=== PATIENT | male | born 1990 | race Caucasian/White ===

== ENCOUNTER 2017-12-21 00:47 | Emergency (ER) | payer OTHER ==
[2017-12-21] MEDS ORDERED: HYDROmorphone 0.5 MG/0.5 ML SYRINGE IVPUSH ONE ×2 (01:49→02:59)
[2017-12-21] MEDS ORDERED: Metoclopramide 10 MG/2 ML SDV IVPUSH ONE (01:50)
--- NOTE | 2017-12-21 01:51 | EDM.PDOC ---
ED HPI GENERAL MEDICAL PROBLEM - General Chief Complaint: General Stated Complaint: PRESSURE BEHIND LEFT EYE AND TOOTH PAIN Time Seen by Provider: 12/21/17 01:48 Source of Information: Reports: Patient History Limitations: Reports: No Limitations - History of Present Illness INITIAL COMMENTS - FREE TEXT/NARRATIVE: 27-year-old male attends the ED with severe left hemifacial pain. States is constant throbbing pain for the last 3 days that will not allow him to sleep. Is for sinusitis in the clinic and started on Augmentin 875/125 mg tablets twice daily 2 days ago. Therefore they have had no time to work. States the pain is severe up underneath his left eye all of his teeth hurt degree the left uppers pain radiates through to his nose as well. He has never had similar type problems. States it all started after he had a nasal swab performed for influenza screen. Not able to blow his nose at all on the left side as it is completely occluded. Onset: Gradual Onset Date: 12/17/17 Duration: Day(s): Location: Reports: Face (Left nilam-face particularly over the left maxillary sinus.) Quality: Reports: Ache, Pressure, Throbbing Severity: Severe Improves with: Reports: None (10 out of 10 pain) Worsens with: Reports: Other Context: Denies: Activity (Bending over makes it much worse.), Exercise, Lifting , Sick Contact, Trauma, Other Associated Symptoms: Reports: Loss of Appetite. Denies: Confusion, Chest Pain, Cough, cough w sputum, Diaphoresis, Fever/Chills, Headaches, Malaise, Nausea/ Vomiting, Rash, Seizure, Shortness of Breath, Syncope, Weakness Treatments CUSHION FILLER: Reports: Other (see below) (He is using Tylenol and Motrin for pain relief without much result.) Left Face Pain Score (Numeric/FACES): 10 - Related Data Allergies Allergy/AdvReac Type Severity Reaction Status Date / Time No Known Allergies Allergy Verified 12/21/17 01:13 Home Meds: Home Meds Amoxicillin/Potassium Clav [Augmentin 875-125 Tablet] 1 tab PO BID 12/21/17 [ History] Diclofenac Sodium [Voltaren] 50 mg PO TID #21 tab.ec 12/21/17 [Rx] Ibuprofen 600 mg PO Q6H PRN 12/21/17 [History] Loratadine/Pseudoephedrine [Claritin-D 24 Hour Tablet] 1 each PO DAILY #5 tab.er.24h 12/21/17 [Rx] oxyCODONE HCl/Acetaminophen [Percocet 5-325 mg Tablet] 1 - 2 each PO Q4H PRN # 20 tablet 12/21/17 [Rx] Past Medical History - Past Health History Medical/Surgical History: Denies Medical/Surgical History Social & Family History - Family History Family Medical History: Noncontributory - Tobacco Use Smoking Status *Q: Current Every Day Smoker Years of Tobacco use: 10 Packs/Tins Daily: 0.8 - Caffeine Use Caffeine Use: Reports: Soda - Alcohol Use Days Per Week of Alcohol Use: 1 Number of Drinks Per Day: 4 Total Drinks Per Week: 4 - Recreational Drug Use Recreational Drug Use: No - Living Situation & Occupation Living situation: Reports: with Significant Other Occupation: Employed ED ROS GENERAL - Review of Systems Review Of Systems: See Below Constitutional: Reports: Malaise, Fatigue (From not being able to sleep the last 3 nights.), Decreased Appetite. Denies: Chills HEENT: Reports: Dental Pain (All of his left upper teeth hurt.), Eye Pain, Nose Pain, Sinus Problem (Left side of his nose is painful as well). Denies: Contact Lenses, Ear Discharge, Ear Pain, Eye Discharge (A pressure up behind his left eye.), Glasses, Hearing Loss, Nosebleed, Rhinitis, Throat Pain ( Diagnosis sinusitis clinically 3 days ago), Throat Swelling, Vertigo Respiratory: Reports: Cough Cardiovascular: Reports: No Symptoms Endocrine: Reports: No Symptoms GI/Abdominal: Reports: No Symptoms : Reports: No Symptoms Musculoskeletal: Reports: No Symptoms Skin: Reports: No Symptoms Neurological: Reports: No Symptoms Psychiatric: Reports: No Symptoms Hematologic/Lymphatic: Reports: No Symptoms Immunologic: Reports: No Symptoms ED EXAM, GENERAL - Physical Exam Exam: See Below Exam Limited By: No Limitations General Appearance: Alert, WD/WN, Moderate Distress, Other (He does have some erythema and swelling over his left maxillary sinus of his face.) Eye Exam: Right Eye: PERRL (Looking upwards) Ears: Normal TMs Nose: Nasal Tenderness (Left alae of nose is tender to touch.), Other (The left anterior naris is completely occluded. The mucosal tissue of the turbinates is swollen closed in the midline. The right is patent without any sign of a nasal polyp.). No: Nasal Drainage Throat/Mouth: Normal Inspection, Normal Lips, Normal Teeth, Normal Oropharynx, Other (Extremely painful to touch over the left maxillary sinus) Head: Facial Swelling, Facial Tenderness (Over the left maxillary sinus.), Sinus Tenderness ( Severe over the left maxillary facial sinus.) Neck: Normal Inspection ( left maxillary and left frontal left ethmoids and sphenoids. ), Supple, Non-Tender, Full Range of Motion. No: Lymphadenopathy (L) , Lymphadenopathy (R) Respiratory/Chest: No Respiratory Distress, Lungs Clear, Normal Breath Sounds Cardiovascular: Normal Peripheral Pulses, Regular Rate, Rhythm, No Edema, No Murmur, No Rub GI/Abdominal: Normal Bowel Sounds, Soft, Non-Tender, No Organomegaly Extremities: Normal Inspection, Normal Range of Motion, Non-Tender, No Pedal Edema Neurological: Alert, Oriented, CN II-XII Intact, Normal Cognition, Normal Gait Psychiatric: Normal Affect, Normal Mood Skin Exam: Warm, Dry, Intact, Normal Color, No Rash Course - Vital Signs Last Recorded V/S: Last Vital Signs Temp 36.6 C 12/21/17 01:09 Pulse 78 12/21/17 01:09 Resp 16 12/21/17 01:09 BP 137/94 H 12/21/17 01:09 Pulse Ox 98 12/21/17 01:09 - Orders/Labs/Meds Orders: Active Orders 24 hr Category Date Time Status Maxillofacial w/o CM [Max Facial Sinus wo Cont] [CT] Exams 12/21/17 01:50 Taken Stat Meds: Medications Discontinued Medications Generic Name Dose Route Start Last Admin Trade Name Yosephq PRN Reason Stop Dose Admin Dexamethasone 10 mg 12/21/17 02:58 12/21/17 03:30 Dexamethasone IVPUSH 12/21/17 02:59 10 mg ONETIME ONE Administration Hydromorphone HCl 0.5 mg 12/21/17 01:49 12/21/17 02:17 Dilaudid IVPUSH 12/21/17 01:50 0.5 mg ONETIME ONE Administration Hydromorphone HCl 0.5 mg 12/21/17 02:59 12/21/17 03:30 Dilaudid IVPUSH 12/21/17 03:00 0.5 mg ONETIME ONE Administration Dextrose/Sodium Chloride 1,000 mls @ 500 mls/hr 12/21/17 02:00 12/21/17 02:16 Dextrose 5%-Normal Saline IV 500 mls/hr ASDIRECTED KANWAL Administration Ceftriaxone Sodium 2 gm/ 100 mls @ 100 mls/hr 12/21/17 02:53 12/21/17 03:31 Sodium Chloride IV 12/21/17 03:52 100 mls/hr ONETIME ONE Administration Ketorolac Tromethamine 30 mg 12/21/17 02:00 Toradol IVPUSH ONETIME KANWAL Ketorolac Tromethamine 30 mg 12/21/17 01:58 12/21/17 02:20 Toradol IVPUSH 12/21/17 01:59 30 mg ONETIME ONE Administration Metoclopramide HCl 7.5 mg 12/21/17 01:50 12/21/17 02:19 Reglan IVPUSH 12/21/17 01:51 7.5 mg ONETIME ONE Administration Oxycodone/Acetaminophen 2 tab 12/21/17 03:57 12/21/17 04:37 Percocet 325-5 Mg PO 12/21/17 03:58 2 tab ONETIME ONE Administration - Radiology Interpretation Free Text/Narrative:: 27-year-old male attends the ED due to severe left hemifacial pain 3 days. He was diagnosed clinically with sinusitis and placed on Augmentin 875 mg/125 mg tablets 2 days ago. He has received little to no relief from this. Pain in his left nilam-face is constant and throbbing and pressure-like. It is localized mainly over the left maxillary sinus. Is referred up into the floor of his left orbit as well as all of his left upper teeth hurt. Left alae of his nose also is painful. He has no fever. Clinically he has an obvious severe maxillary sinusitis on the left side. Plan CT of the maxillary facial sinuses to be done. He will have an IV started normal saline at 500 mils per hour. Will give Dilaudid 0.5 mg IV with Reglan 7.5 mg IV and Toradol 30 mg IV for pain and inflammation relief. - Re-Assessments/Exams Free Text/Narrative Re-Assessment/Exam: 12/21/17 0255 : CT scan of the maxillofacial sinuses shows extensive sinusitis with the left maxillary sinus being completely packed with pus. There appears to be possible extension or bony erosion of the medial aspect of the sinus as well. The ethmoids on the left side are also heavily involved as is the lower portion of the left frontal sinus. Right frontal sinus is clear. There is some inflammation of the ethmoids and sphenoids on the right side and the right maxillary sinuses has about one third full of inflammatory fluid. For this reason he'll be given Rocephin 2 g intravenously in the hopes of getting better control of the infected process. Dexamethasone 10 mg IV to help relieve pain and inflammation. I will give him another dose of Dilaudid 0.5 mils grams IV for pain relief. The plan will be to discharge him home with continued use of Augmentin for a full 12 days. Percocet 5/3/25 milligram tablets one or 2 every 4 -6 hours to relieve pain and inflammation. Voltaren 50 mg 3 times daily for 7 days to reduce inflammation and pain. Claritin-D 24-hour release 1 tablet once daily in the morning for another 5 days to act as a decongestant. Due to the severity of his sinusitis I would advise repeat CT scan in a month's time and likely referral to ear nose and throat surgery for review. Departure - Departure Time of Disposition: 04:20 Disposition: Home, Self-Care 01 Condition: Fair Clinical Impression: Acute pansinusitis Qualifiers: Recurrence: non-recurrent Qualified Code(s): J01.40 - Acute pansinusitis, unspecified - Discharge Information Prescriptions: Diclofenac Sodium [Voltaren] 50 mg PO TID #21 tab.ec Loratadine/Pseudoephedrine [Claritin-D 24 Hour Tablet] 1 each PO DAILY #5 tab.er.24h oxyCODONE HCl/Acetaminophen [Percocet 5-325 mg Tablet] 1 - 2 each PO Q4H PRN # 20 tablet PRN Reason: pain relief. Instructions: Sinusitis, Adult, [id number] Referrals: PCP,None [Primary Care Provider] - Forms: ED Department Discharge Additional Instructions: Evaluation in the emergency him tonight in regards to severe constant left hemifacial pain due to severe left maxillary sinusitis infection. CT scan of the maxillofacial sinuses reveal extensive sinus infection involving the left maxillary left ethmoids left frontal sinus and part of the right maxillary sinus. There appears to be some bony erosion or perhaps expansion fracture of the medial wall of the left maxillary sinus. You are on the right antibiotic in terms of Augmentin 875 mg twice daily which is that it has not had time to work. It starts working well about the third day of treatment. You're treated in the ED with intravenous fluids and Rocephin 2 g IV in the hopes of improving infective process a little faster. Pain medication Dilaudid 0.5 mg 2 doses given to alleviate some of the pain in her left face. Treatment at home is plenty of warm or hot fluids such as soup coffee hot chocolate etc. anything warm or help decongest sinuses and promote drainage. Hot compresses over her maxillary sinus hot showers would help as well. Suggest decongestant Claritin-D 24-Hour release 1 tablet in the morning every day for the next 5 days to try and get the sinus to open up and drain the pus. Antibiotic is to continuecurrent Augmentin dosage twice daily for at least 10 days' duration. I would also suggest Voltaren 50 mg 3 times daily to reduce pain and inflammation. Percocet tabs 5/3/25 milligram tabs one or 2 every 4-6 hours for pain relief as needed until antibiotics begin to work well in which time the pain will dissipate. Due to the extensive sinus infection on CT exam I would suggest follow-up with your nose and throat surgeon. I would suggest you call Dr. Dean --ear nose and throat surgeon in [place] to arrange an appointment. His phone #[phone] your [address] has been made and you' re to take this with you to the appointment. I've also sent along your history and physical from today's examination .This will act as a referral to specialist. Hopefully facial pain will dissipate over the next 48-72 hours. If not then consultation with her nose and throat doctor would be considered sooner rather than later. - My Orders Last 24 Hours: My Active Orders 12/21/17 01:50 Maxillofacial w/o CM [Max Facial Sinus wo Cont] [CT] Stat - Assessment/Plan Last 24 Hours: My Active Orders 12/21/17 01:50 Maxillofacial w/o CM [Max Facial Sinus wo Cont] [CT] Stat
[2017-12-21] MEDS ORDERED: Ketorolac 30 MG/ML SDV IVPUSH ONE (01:58)
[2017-12-21] MEDS ORDERED: Ketorolac 30 MG/ML SDV IVPUSH SCH (02:00)
[2017-12-21] MEDS ORDERED: Dextrose 5%-0.9% NaCl 1,000 ML IV SCH (02:00)
[2017-12-21] MEDS ORDERED: cefTRIAXone 2 GM in Sodium Chloride 0.9% 100 ML IV ONE (02:53)
[2017-12-21] MEDS ORDERED: Dexamethasone 4 MG/ML SDV IVPUSH ONE (02:58)
[2017-12-21] MEDS ORDERED: Acetaminophen/oxyCODONE 325-5 MG Tab PO ONE (03:57)
--- NOTE | 2017-12-21 07:37 | CT ---
CT facial bones Technique: Multiple axial sections through the facial bones were obtained. Findings: Near complete opacification of the left maxillary sinus is seen. Mucosal thickening from the left maxillary sinus causes widening of the maxillary ostia and some increased soft tissue density within the left nasal cavity. Mild mucosal thickening with probable air-fluid level seen within the right maxillary sinus. Moderate mucosal thickening noted within the ethmoid sinuses. Mild mucosal thickening noted within the sphenoid sinus. Mild mucosal thickening seen within the left frontal sinus with probable air-fluid level. No underlying bony abnormality is identified. Impression: 1. Diffuse sinusitis as noted above. Findings most likely represent acute sinusitis superimposed upon chronic sinusitis. Diagnostic code #3 Agree with preliminary report issued by [employer] [facility] preliminary report dictated on 12/21/17, 4:04 AM Central Time)
== END 2017-12-21 04:43 | disposition home or self-care (01) ==
LOC: JD.ED 00:47
DX: J01.40 Acute pansinusitis, unspecified (principal); F17.210 Nicotine dependence, cigarettes, uncomplicated; Z79.899 Other long term (current) drug therapy
CPT/HCPCS: 70486; 96361; 96365; 96375; 96376; 99283; A9270; J0696; J1100; J1170; J1885; J2765; J7030; J7042; 99284

== ENCOUNTER 2020-03-30 14:58 | Emergency (ER) | payer OTHER ==
--- NOTE | 2020-03-30 15:59 | EDM.PDOC ---
ED HPI GENERAL MEDICAL PROBLEM - General Chief Complaint: Lower Extremity Injury/Pain Stated Complaint: RT ANKLE INJURY Time Seen by Provider: 03/30/20 15:15 Source of Information: Reports: Patient, RN Notes Reviewed History Limitations: Reports: No Limitations - History of Present Illness INITIAL COMMENTS - FREE TEXT/NARRATIVE: Patient is a 30-year-old male who presents to the ED for evaluation of his right ankle injury. Patient states that last night he stepped off a curb, and ended up rolling his ankle. He states he felt a "pop". He states that he did put ice on the ankle right away. He has pain mostly in his right lateral ankle , and there is quite a bit of swelling noted to the lateral epicondyle. Patient states that the pain does worsen when he weight bears on the ankle, he was still able to walk into the ER department. Patient had not had a chance to put any sort of Todd wrap on the ankle as he did not have any of these at home. Patient can still wiggle toes, denies any numbness or tingling distal to the injury, and states there is no pain further up the leg. He states that pain does worsen when he dorsiflexes his foot. Treatments SPUD GRADER: Reports: Cold Therapy Right Ankle Pain Score (Numeric/FACES): 3 - Related Data Allergies Allergy/AdvReac Type Severity Reaction Status Date / Time No Known Allergies Allergy Verified 03/30/20 15:18 Home Meds: Home Meds Ibuprofen 600 mg PO Q6H PRN 12/21/17 [History] Past Medical History - Past Health History Medical/Surgical History: Denies Medical/Surgical History Social & Family History - Family History Family Medical History: Noncontributory - Tobacco Use Smoking Status *Q: Current Every Day Smoker Years of Tobacco use: 10 Packs/Tins Daily: 1 - Caffeine Use Caffeine Use: Reports: Soda - Recreational Drug Use Recreational Drug Use: No - Living Situation & Occupation Living situation: Reports: with Significant Other Occupation: Employed Review of Systems - Review of Systems Review Of Systems: Comprehensive ROS is negative, except as noted in HPI. ED EXAM, GENERAL - Physical Exam Exam: See Below Exam Limited By: No Limitations General Appearance: Alert, WD/WN, No Apparent Distress Respiratory/Chest: No Respiratory Distress, Lungs Clear, Normal Breath Sounds, No Accessory Muscle Use, Chest Non-Tender Cardiovascular: Normal Peripheral Pulses, Regular Rate, Rhythm, No Murmur Peripheral Pulses: 3+: Dorsalis Pedis (L), Dorsalis Pedis (R) Extremities: Normal Inspection (Mild amount of swelling to the right lateral epicondyles.), Normal Capillary Refill Neurological: Alert, Oriented, Normal Cognition, No Motor/Sensory Deficits Psychiatric: Normal Affect, Normal Mood Skin Exam: Warm, Dry, Intact, Normal Color, No Rash Course - Vital Signs Last Recorded V/S: Last Vital Signs Temp 98.4 F 03/30/20 15:14 Pulse 88 03/30/20 15:14 Resp 18 03/30/20 15:14 BP 138/87 03/30/20 15:14 Pulse Ox 97 03/30/20 15:14 - Re-Assessments/Exams Free Text/Narrative Re-Assessment/Exam: 03/30/20 16:21 Patient presents to the ED for evaluation of his right ankle injury. X-rays were obtained at time of triage, and demonstrate no fracture or other bony abnormality, there was soft tissue swelling noted. Patient's ankle will be Todd wrapped, he does not want crutches and thinks he can bear weight as tolerated. He will be discharged home with other conservative measures. Departure - Departure Time of Disposition: 16:22 Disposition: Home, Self-Care 01 Condition: Good Clinical Impression: Right ankle sprain Qualifiers: Encounter type: initial encounter Involved ligament of ankle: other ligament Qualified Code(s): S93.491A - Sprain of other ligament of right ankle, initial encounter - Discharge Information *PRESCRIPTION DRUG MONITORING PROGRAM REVIEWED*: No *COPY OF PRESCRIPTION DRUG MONITORING REPORT IN PATIENT PARKER: No Instructions: How to Use a Stirrup Ankle Brace, [id number], Ankle Sprain, [id number] Referrals: PCP,None [Primary Care Provider] - Forms: ED Department Discharge Additional Instructions: You have been evaluated in the ED for your right ankle injury. Your x-ray demonstrated no acute fracture or other bony abnormality. Please use ice as tolerated to the affected area. Please try to elevate the affected area to relieve swelling. You may take Tylenol 500 mg or ibuprofen 600mg q6 hrs for pain relief. Please do so until you have a tolerable level of pain with activity. Do not exceed 4000mg Tylenol or 3200mg ibuprofen in a 24 hour time period. If you find an Todd wrap is not providing enough support for your ankle, you can go to any retail place like [email or web address] or any pharmacy and get a stirrup type ankle brace, this will provide more lateral support for your ankle. Please return to ED if your symptoms should change or worsen. Sepsis Event Note (ED) - Evaluation Sepsis Screening Result: No Definite Risk - Focused Exam Vital Signs: Vital Signs Temp Pulse Resp BP Pulse Ox 03/30/20 15:14 98.4 F 88 18 138/87 97
--- NOTE | 2020-03-30 16:15 | CR ---
Right ankle: 4 views the right ankle were obtained. Comparison: No prior right ankle exam. Soft tissue swelling is identified. Ankle mortise is symmetric. No acute fracture, dislocation or other bony abnormality is appreciated. Impression: 1. Soft tissue swelling. 2. No acute bony abnormality is appreciated. Diagnostic code #2 Study was dictated in [facility]
== END 2020-03-30 16:33 | disposition home or self-care (01) ==
LOC: JD.ED 14:58
DX: S93.401A Sprain of unspecified ligament of right ankle, initial encounter (principal); F17.210 Nicotine dependence, cigarettes, uncomplicated; W22.09XA Striking against other stationary object, initial encounter
CPT/HCPCS: 73610-26-RT; 73610-RT; 99282; 99283-25

== ENCOUNTER 2024-11-19 08:40 | Emergency (ER) | payer BC ==
[2024-11-19] MEDS: Sodium Chloride 0.9% 10 ML Syringe FLUSH PRN ×2 (09:00→09:08)
[2024-11-19 09:05] LABS: BASOPHILS PERCENT AUTO 0.7 % (0.0-1.0); EOSINOPHILS ABSOLUTE AUTO 0.1 K/mm3 (0.0-0.4); EOSINOPHILS PERCENT AUTO 2.3 % (0.0-6.0); HEMATOCRIT 45.1 % (42.0-52.0); HEMOGLOBIN 15.9 gm/dl (14.0-18.0); IMMATURE GRAN ABSOLUTE AUTO 0.02 K/mm3 (0.00-0.05); IMMATURE GRAN PERCENT AUTO 0.5 % (0.0-0.4); LYMPHOCYTES ABSOLUTE AUTO 1.2 K/mm3 (1.0-4.8); LYMPHOCYTES PERCENT AUTO 27.2 % (24.0-44.0); MEAN CORPUSCULAR HEMOGLOBIN 29.9 pg (28.0-32.0); MEAN CORPUSCULAR HGB CONC 35.3 g/dl (32.0-36.0); MEAN CORPUSCULAR VOLUME 84.8 fl (83.0-99.0); MEAN PLATELET VOLUME 9.4 fl (9.4-12.4); MONOCYTES ABSOLUTE AUTO 0.4 K/mm3 (0.0-0.8); MONOCYTES PERCENT AUTO 9.4 % (0.0-8.0); NEUTROPHILS ABSOLUTE AUTO 2.6 K/mm3 (1.8-7.7); NEUTROPHILS PERCENT AUTO 59.9 % (41.0-71.0); PLATELET COUNT,PLT 164 K/mm3 (150-400); RED BLOOD CELL COUNT 5.32 M/mm3 (4.52-5.90); WHITE BLOOD CELL COUNT,WBC 4.37 K/mm3 (3.9-11.3)
[2024-11-19] MEDS: Sodium Chloride 0.9% 100 ML IV SCH (09:08)
[2024-11-19] MEDS: Iopamidol 755 Mg/ML 100 ML Bottle IVPUSH ONE (09:08)
[2024-11-19 09:24] LABS: INR 1.03; PROTHROMBIN TIME 10.9 SECONDS (9.7-12.0)
[2024-11-19 09:25] LABS: PTT,PARTIAL THROMBOPLSTIN TIME 25.6 SECONDS (21.7-31.4)
[2024-11-19 09:32] LABS: A/G RATIO 1.4 (1-2); ANION GAP 12.1 (5-15); BILIRUBIN TOTAL 0.7 mg/dL (0.2-1.0); BUN/CREATININE RATIO 11.7 (14-18); CALCIUM 8.6 mg/dL (8.5-10.1); CREATININE 1.2 mg/dL (0.7-1.3); EST CRCL DRUG DOSING (CG) 90.41 mL/min; MAGNESIUM 1.9 mg/dL (1.8-2.4); POTASSIUM,K 4.1 mEq/L (3.5-5.1); PROTEIN TOTAL,TP 6.9 g/dl (6.4-8.2)
[2024-11-19] MEDS: Sodium Chloride 0.9% 1,000 ML IV ONE (09:32)
[2024-11-19 10:21] LABS: BARBITURATE SCREEN,URINE NEGATIVE (CUTOFF=200); BENZODIAZEPINES SCREEN,URINE NEGATIVE (CUTOFF=150); BUPRENORPHINE SCREEN,URINE NEGATIVE (CUTOFF=10); METHADONE SCREEN, URINE NEGATIVE (CUT0FF=200); METHAMPHETAMINES SCREEN, URINE NEGATIVE (CUTOFF=500); OXYCODONE SCREEN,URINE NEGATIVE (CUT0FF=100); THC SCREEN,URINE 20 NG/ML NEGATIVE (CUTOFF=50)
[2024-11-19 10:31] LABS: AMPHETAMINES SCREEN, URINE NEGATIVE (CUTOFF=500)
[2024-11-19] MEDS: Gadobenate Dimeglumine 529 MG/ML 20 ML SDV IVPUSH ONE (12:22)
[2024-11-19] MEDS: Sodium Chloride 0.9% 10 ML Syringe FLUSH SCH (12:22)
== END 2024-11-19 14:05 | disposition home or self-care (01) ==
LOC: JD.ED 08:40
DX: R20.2 Paresthesia of skin (principal)
CPT/HCPCS: 36415; 70450; 70496; 70498; 70553; 80053; 80306; 82947; 83735; 84484; 85025; 85610; 85730; 93005; 96360; 99284; A9577; J7030; Q9967; 93010

== ENCOUNTER 2024-12-10 04:16 | Emergency (ER) | payer BC ==
[2024-12-10] MEDS: Acetaminophen/oxyCODONE 325-5 MG Tab PO ONE (05:03)
== END 2024-12-10 05:11 | disposition home or self-care (01) ==
LOC: JD.ED 04:16
DX: M79.89 Other specified soft tissue disorders (principal); R20.2 Paresthesia of skin; M79.645 Pain in left finger(s); M79.644 Pain in right finger(s); F17.210 Nicotine dependence, cigarettes, uncomplicated; Z79.899 Other long term (current) drug therapy; Z86.16 Personal history of COVID-19
CPT/HCPCS: 99284; A9270

== ENCOUNTER 2025-03-17 12:30 | Emergency (ER) | payer BC ==
[2025-03-17] MEDS ORDERED: Sodium Chloride 0.9% 10 ML Syringe FLUSH PRN (12:44)
[2025-03-17 13:00] LABS: BASOPHILS PERCENT AUTO 0.3 % (0.0-1.0); EOSINOPHILS ABSOLUTE AUTO 0.1 K/mm3 (0.0-0.4); HEMATOCRIT 42.1 % (42.0-52.0); LYMPHOCYTES ABSOLUTE AUTO 0.7 K/mm3 (1.0-4.8); LYMPHOCYTES PERCENT AUTO 22.8 % (24.0-44.0); MEAN CORPUSCULAR HEMOGLOBIN 29.8 pg (28.0-32.0); MEAN CORPUSCULAR HGB CONC 35.6 g/dl (32.0-36.0); MEAN CORPUSCULAR VOLUME 83.5 fl (83.0-99.0); MEAN PLATELET VOLUME 8.7 fl (9.4-12.4); MONOCYTES ABSOLUTE AUTO 0.4 K/mm3 (0.0-0.8); MONOCYTES PERCENT AUTO 14.6 % (0.0-8.0); NEUTROPHILS ABSOLUTE AUTO 1.8 K/mm3 (1.8-7.7); NEUTROPHILS PERCENT AUTO 60.3 % (41.0-71.0); PLATELET COUNT,PLT 147 K/mm3 (150-400); RED BLOOD CELL COUNT 5.04 M/mm3 (4.52-5.90); WHITE BLOOD CELL COUNT,WBC 3.02 K/mm3 (3.9-11.3)
[2025-03-17 13:21] LABS: A/G RATIO 1.4 (1-2); ALBUMIN 3.8 g/dl (3.4-5.0); ANION GAP 10.8 (5-15); C-REACTIVE PROTEIN 0.42 mg/dL (<0.30); CALCIUM 8.8 mg/dL (8.5-10.1); EST CRCL DRUG DOSING (CG) 107.47 mL/min; POTASSIUM,K 3.8 mEq/L (3.5-5.1); PROTEIN TOTAL,TP 6.5 g/dl (6.4-8.2)
[2025-03-17] MEDS: Sodium Chloride 0.9% 10 ML Syringe FLUSH ONE (13:26)
[2025-03-17] MEDS: Iopamidol 612 MG/ML 100 ML Bottle IVPUSH ONE (13:26)
[2025-03-17] MEDS: Sodium Chloride 0.9% 1,000 ML IV STA (13:33)
== END 2025-03-17 15:18 | disposition home or self-care (01) ==
LOC: JD.ED 12:30
DX: K62.5 Hemorrhage of anus and rectum (principal); R19.7 Diarrhea, unspecified; Z86.16 Personal history of COVID-19
CPT/HCPCS: 36415; 74177; 80053; 82272; 83690; 85025; 86140; 87493; 96360; 99284; J7030; Q9967